=== PATIENT | male | born 1940 | race Caucasian/White ===

== ENCOUNTER 2021-02-02 13:50 | Outpatient (CLI) | payer MEDICARE | END 2021-02-02 13:51 | disposition home or self-care (01) | LOC: COV 13:50 | PROVIDERS: ATTEND Internal Medicine Gastroenterology | DX: Z01.812 Encounter for preprocedural laboratory examination (principal); R13.14 Dysphagia, pharyngoesophageal phase; Z20.822 Contact with and (suspected) exposure to COVID-19 ==

== ENCOUNTER 2023-06-29 12:04 | Outpatient (CLI) | payer MEDICARE | END 2023-06-29 23:59 | disposition short-term general hospital (02) | LOC: EMS 12:04 | DX: I46.9 Cardiac arrest, cause unspecified (principal) | CPT/HCPCS: A0425; A0427 ==